=== PATIENT | male | born 1995 | race Native Hawaiian/Other Pacific Islander ===

== ENCOUNTER 2021-09-05 20:05 | Emergency (ER) | payer MEDICAID, OTHER ==
[~2021-09-05] VITALS: Ht 182.9 cm; Wt 124.7 kg
[2021-09-05] MEDS ORDERED: KETOROLAC TROMETH 60MG/2ML VIAL IM ONE (21:45)
[2021-09-05] MEDS ORDERED: NAP500T PO (21:46)
[2021-09-05 21:48] VITALS: BP 140/77
== END 2021-09-05 22:43 | disposition home or self-care (01) ==
LOC: ER 20:05
DX: M25.512 Pain in left shoulder (principal); M79.18 Myalgia, other site; X58.XXXA Exposure to other specified factors, initial encounter; Y93.89 Activity, other specified; Y92.89 Other specified places as the place of occurrence of the external cause; Y99.8 Other external cause status
CPT/HCPCS: 96372; 99283; J1885

== ENCOUNTER 2025-01-07 10:30 | Inpatient (IN) | payer MEDICAID ==
[~2025-01-07] VITALS: Ht 182.9 cm; Wt 159.0 kg
[~2025-01-07 10:30] MED LIST: ALBU108A5 INH; COLC1CAP PO; NAP500T PO; POTA-228 PO
--- NOTE | 2025-01-07 10:43 | ECG ---
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
--- NOTE | 2025-01-07 11:03 | ED.PDOC ---
HPI Comments HPI: Poor Historian. 29-year-old male who presents to the ED for c/c of chest pain and shortness of breath for the past 3 weeks Patient states that he has a history of heart failure from prior drug and ETOH use and states he has been having associated bilateral lower extremity swelling Patient states he was hospitalized in October 2024 and states since he has been coming to the hospital every few months for similar complaints Patient states he was placed on 2 L supplemental oxygen at home but states despite being on oxygen he has continued to have persistence of his symptoms Patient states he was also noted increased shortness of breath on attempting to lay down and came to the ED for evaluation Patient in the ED states 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 EARS: Denies acute: tinnitus, hearing loss, ear discharge, ear pain, THROAT: Denies acute: sore throat, swelling, difficulty swallowing , pain with swallowing, change in voice. NECK: Denies acute: neck pain, neck swelling, stiff neck. HEART: Denies acute : palpitations, LUNGS: Denies acute: wheezing, cough, hemoptysis ABDOMEN: Denies acute: abdominal pain, Nausea, Vomiting, diarrhea, melena , hematemesis, hematochezia SKIN: Denies acute: rash, redness, lesions, itchiness. EXTREMITIES: Denies acute: calf pain, numbness, tingling, weakness, denies pain in extremity. Denies acute: Low back pain. Neuro: Denies acute: focal neurological deficit, motor or sensory focal neurological deficit, tremors, seizure like activity, confusion, dizziness, change in mental status, loss of bowel or bladder function, cauda equina like symptoms. : Denies acute: dysuria, hematuria, flank pain, increase in urinary frequency. PSYCH: Denies acute: hallucination, suicidal ideation, homicidal ideation. PHYSICAL EXAM: General: ----[id number]---acute distress, awake and alert. Head: normocephalic, atraumatic. Neck: supple, trachea is midline, no swelling. Throat: Normal phonation. Eyes:, no erythema, no purulent discharge, no proptosis, no icterus. Heart: regular rate, regular rhythm, no significant murmur appreciated. Lungs: no apparent respiratory distress, Able to speak in full sentences. No wheezing, no rhonchi, no crackles. No stridors Clear to auscultation bilaterally. Abdomen: non tender to palpation, non distended, soft, no guarding, no rebound, + bowel sounds. Obese Neuro: Awake, Alert, oriented to name, self, situation, follows commands GCS=15. Speech is normal. Skin: no petechia, no purpura, no cyanosis, non-pale, not jaundice. Lower extremities: --1/4 bilateral - Pitting edema no deformity, no focal swelling, no calf TTP. Makes eye contact. moves all four extremities. Face: no apparent facial droop. Ambulating in the ED independently. ED COURSE: DISCLAIMER: This medical document was created using an electronic medical record system with voice recognition software and computerized dictation system. Although this document has been carefully reviewed, there might still be some phonetic and typographical errors. Occasional wrong-word or "sound-alike" substitutions may have occurred due to the inherent limitations of voice recognition software. These areas are purely typographical due to imperfections of the software programs and do not reflect any compromise in the patient's medical care. Please read the chart carefully and recognize, using context, where these substitutions have occurred. Chief Complaint: Chest Pain Time Seen by MD: 10:44 Reviewed Notes: Allergies Allergies: Coded Allergies: NO KNOWN ALLERGIES (Unverified , 01/07/25) Home Meds Active Scripts Naproxen (NAPROSYN TABLET) 500 Mg Tb, 1 TAB PO BID PRN, #30 TAB 1 Refill Prov:PAVEL XIE Lona QUINONES 09/05/21 Reported Medications Sacubitril-Valsartan (Entresto 24-26 mg) 1 Tab Tab, 1 TAB PO BID 01/07/25 Carvedilol (Carvedilol) 3.125 Mg Tab, 1 TAB PO BID 01/07/25 Aspirin (Aspirin Low Dose) 81 Mg Tab, 1 TAB PO DAILY 01/07/25 Fluticasone Furoate-Vilanterol (Fluticasone Furoate/Vilan 100-25 Mcg/Act) 1 Inh Inh, 1 PUFF PO DAILY 01/07/25 Albuterol Sulfate (Albuterol Sulfate Hfa) 108 Mcg/Act Aer, INH 01/07/25 Colchicine (Colchicine) 0.6 Mg Cap 01/07/25 Furosemide (Furosemide) 80 Mg Tab, 1 TAB PO BID 01/07/25 Allopurinol (Allopurinol) 100 Mg Tab, 1 TAB PO DAILY 01/07/25 Furosemide (Furosemide) 40 Mg Tab, 1 TAB PO DAILY 01/07/25 Empagliflozin (Jardiance) 25 Mg Tab, 1 TAB PO DAILY 01/07/25 Information Source: Patient Mode of Arrival: Ambulatory Past Medical History PAST MEDICAL HISTORY: Denies EKG EKG : Pulse Rate (adult): 102 [place]: Normal Cardiac Rhythm: ST Block: None Hypertrophy: None ST: Normal Was a procedure done? Was a procedure done?: No CP Differential Dx Differential Diagnosis: N/A Differential Diagnosis: Other (DDx include ACS, unstable angina, anxiety, PE, pneumothroax, neoplasm, cardiac ischemia, COPD, asthma, CHF, pleural effusion, tobacco abuse, pneumonia, hypoxia, hypercapnia, anemia., infection/sepsis., pulmonary edema. Asthma, Cardiac tamponade, infection.) X-Ray, Labs, Meds, VS Vital Signs Date Time Temp Pulse Resp B/P (MAP) Pulse Ox O2 Delivery O2 Flow Rate FiO2 01/07/25 13:33 93 01/07/25 13:13 136/72 01/07/25 12:50 102 01/07/25 12:43 49 18 100 Room Air 01/07/25 12:43 49 18 93/58 (70) 99 01/07/25 11:35 98 01/07/25 10:34 102 01/07/25 10:32 97.4 102 20 123/63 97 97.4 Lab Test 01/07/25 14:00 01/07/25 11:39 01/07/25 10:41 Range/Units Troponin I High Sensitivity 41 44 45 </=54 ng/L White Blood Count 7.1 4.4-10.8 10^3/uL Red Blood Count 5.37 4.5-5.90 10^6/uL Hemoglobin 17.4 13.5-17.5 g/dL Hematocrit 51.0 41.0-53.0 % Mean Corpuscular Volume 94.9 80.0-100.0 fL Mean Corpuscular Hemoglobin 32.4 H 28.0-32.0 pg Mean Corpuscular Hemoglobin Concent 34.1 32.0-36.0 g/dL Red Cell Distribution Width 15.4 H 11.8-14.3 % Platelet Count 178 140-450 10^3/uL Mean Platelet Volume 7.7 6.9-10.8 fL Neutrophils (%) (Auto) 54.8 37.0-80.0 % Lymphocytes (%) (Auto) 30.2 10.0-50.0 % Monocytes (%) (Auto) 8.4 0.0-12.0 % Eosinophils (%) (Auto) 5.4 0.0-7.0 % Basophils (%) (Auto) 1.2 0.0-2.0 % Neutrophils # (Auto) 3.9 1.6-8.6 10 ^3/uL Lymphocytes # (Auto) 2.2 0.4-5.4 10 ^3/uL Monocytes # (Auto) 0.6 0-1.3 10 ^3/uL Eosinophils # (Auto) 0.4 0-0.8 10 ^3/uL Basophils # (Auto) 0.1 0-0.2 10 ^3/uL Nucleated Red Blood Cells 0.2 % Sodium Level 136 136-145 mmol/L Potassium Level 4.2 3.5-5.1 mmol/L Chloride Level 101 98-107 mmol/L Carbon Dioxide Level 22 20-31 mmol/L Anion Gap 13 5-15 Blood Urea Nitrogen 17 9-23 mg/dL Creatinine 1.39 H 0.700-1.30 mg/dL Glomerular Filtration Rate Calc 70 >90 mL/min BUN/Creatinine Ratio 12.2 10.0-20.0 Serum Glucose 86 74-106 mg/dL Hemoglobin A1c 6.0 H <5.7 % A1C Calcium Level 9.1 8.7-10.4 mg/dL Magnesium Level 2.0 1.6-2.6 mg/dL Total Bilirubin 2.4 H 0.2-1.0 mg/dL Aspartate Amino Transferase (AST) 60 H 13-40 U/L Alanine Aminotransferase (ALT) 35 7-40 U/L Alkaline Phosphatase 110 46-116 U/L B-Type Natriuretic Peptide 2060.58 0-100 pg/mL Total Protein 7.4 5.7-8.2 g/dL Albumin 4.1 3.2-4.8 g/dL Current Medications Medications (Trade) Dose Ordered Sig/Evens Route Start Time Stop Time Status Last Admin Furosemide (Lasix Injection) 80 mg ONCE ONCE IV 01/07/25 11:00 01/07/25 11:01 DC 01/07/25 13:13 [place] [address] Ph: [phone] DIAGNOSTIC IMAGING Diagnostic Imaging Report : [id number] Signed PATIENT: MAURO WOLF ACCT: [id number] UNIT: [id number] : 1995 LOC: ER ROOM / BED: / AGE / SEX: 29 / M ADM STATUS: REG ER SERVICE 1050 ORDERING PHYSICIAN: ARSALAN DE OLIVEIRA DO PROCEDURE(s): CXRP - CHEST PORTABLE REASON: cp sob ORDER NUMBER(s): [id number], ACCESSION NUMBER(s): [id number] CHEST RADIOGRAPH Indication: cp sob Technique: Single frontal view of the chest was obtained COMPARISON: XR CHEST 1 VIEW on DOS: 11/04/24, CT ANGIO CHEST - PULMONARY on DOS: 08/26/24, XR CHEST 2 VIEWS on DOS: 08/26/24, XR CHEST 1 VIEW on DOS: 12/18/23, XR CHEST 1 VIEW on DOS: 08/03/20 FINDINGS: Lines and Tubes: Left chest AICD. Lungs: Congestion Pleura: No effusion. No pneumothorax. Cardiomediastinal contours: Cardiomegaly Bones: Unremarkable IMPRESSION: Increased interstital prominence. This may represent pulmonary vascular congestion and/or viral pneumonia. Clinical correlation advised. ATED BY: MYKE ESCALERA MD DICTATED DATE/TIME: 01/07/25 112 SIGNED BY: MYKE ESCALERA MD SIGNED DATE/TIME: 01/07/25 112 CC: Time of 1ST Reevaluation: 20:22 Reevaluation 1ST: Improved Patient Education/Counseling: Diagnosis, Treatment Family Education/Counseling: No Family Present Comments MDM: patient presented with the above HPI.-dyspnea/cardiac-----workup was initiated. patient was found with the above mentioned diagnosis. the following medications were ordered: please refer to order lists of meds and tests obtained by myself Dr. De Oliveira. Patient ED course and VS have been stabilized. Patient has been reassessed in the ED and remained in a stable condition. Pertinent incidental findings were discussed with the patient and/or family. Patient/family voices understanding and is agreeable with plan. Patient has been observed in the ED adequate length of time to insure improvement/stability. Escalation of care considered: Consideration of escalation to observation or admission Patient was ADMITTED to the medicine team for further evaluation and treatment of their presentation. All the reports of any imaging studies that were ordered by myself were reviewed by myself. SEPSIS Sepsis Screen Date sepsis recognized/suspect: Jan 07, 2025 Time Sepsis recognized/suspect: 1036 Recent Procedure: No On Antibiotic Therapy: No Respiratory Rate >20: No Heart Rate >90: Yes Temp<36 C (96.8 F) or >38.3 C: No SBP <90 or MAP <65 mmHG: No New Acute Mental Status Change: No Is the patient on CPAP, BIPAP,: No Physician Orders Electrocardigram (01/07/25 13:41) Wallpaper Installer (01/07/25 ) Chest Portable (01/07/25 10:50) Vital Signs Date Time Temp Pulse Resp B/P (MAP) Pulse Ox O2 Delivery O2 Flow Rate FiO2 01/07/25 13:33 93 01/07/25 13:13 136/72 01/07/25 12:50 102 01/07/25 12:43 49 18 100 Room Air 01/07/25 12:43 49 18 93/58 (70) 99 01/07/25 11:35 98 01/07/25 10:34 102 01/07/25 10:32 97.4 102 20 123/63 97 97.4 Laboratory Tests Test 01/07/25 10:41 White Blood Count 7.1 10^3/uL (4.4-10.8) Medications Medications Dose Ordered Sig/Evens Route Start Time Stop Time Status Last Admin Dose Admin Furosemide 80 mg ONCE ONCE IV 01/07/25 11:00 01/07/25 11:01 DC 01/07/25 13:13 Departure 1 Departure Time of Disposition: 11:09 Impression: Primary Impression: CHF exacerbation Disposition: ADMITTED INPATIENT Admit to: Tele Condition: Guarded Discharged With: Self Critical Care Note Critical Care Time?: Yes (35 min-critical care time only) Heart Score Heart Score: Heart Score Response (Comments) Value History Moderate Suspicious 1 EKG Normal 0 Age <45 0 Risk Factors 1 or 2 risk factors 1 Troponin Normal limit 0 Total 2 I personally scribed for ARSALAN DE OLIVEIRA DO ([email or web address]) on 01/07/25 at 11:03. Electronically submitted by Haleigh Moon ([email or web address]). I personally scribed for ARSALAN DE OLIVEIRA DO ([email or web address]) on 01/07/25 at 12:50. Electronically submitted by Haleigh Moon ([email or web address]). ARSALAN DE OLIVEIRA DO Jan 07, 2025 11:03
[2025-01-07 11:16] LABS: Hematocrit 51.0 % (41.0-53.0); Hemoglobin 17.4 g/dL (13.5-17.5); Mean Corpuscular Hemoglobin 32.4 pg (28.0-32.0); Mean Corpuscular Volume 94.9 fL (80.0-100.0); Nucleated Red Blood Cells % 0.2 %
[2025-01-07 11:31] LABS: Alanine Aminotransferase 35 U/L (7-40); Albumin 4.1 g/dL (3.2-4.8); Alkaline Phosphatase 110 U/L (46-116); Anion Gap 13 (5-15); BUN/Creatinine Ratio 12.2 (10.0-20.0); Blood Urea Nitrogen 17 mg/dL (9-23); Calcium 9.1 mg/dL (8.7-10.4); Carbon Dioxide 22 mmol/L (20-31); Chloride 101 mmol/L (98-107); Glucose 86 mg/dL (74-106); Magnesium 2.0 mg/dL (1.6-2.6); Potassium 4.2 mmol/L (3.5-5.1); Total Protein 7.4 g/dL (5.7-8.2)
[2025-01-07 11:32] LABS: Bilirubin, Total 2.4 mg/dL (0.2-1.0); Sodium 136 mmol/L (136-145)
--- NOTE | 2025-01-07 11:32 | DVH ---
CHEST RADIOGRAPH Indication: cp sob Technique: Single frontal view of the chest was obtained COMPARISON: XR CHEST 1 VIEW on DOS: 11/04/24, CT ANGIO CHEST - PULMONARY on DOS: 08/26/24, XR CHEST 2 V IEWS on DOS: 08/26/24, XR CHEST 1 VIEW on DOS: 12/18/23, XR CHEST 1 VIEW on DOS: 08/03/20 FINDINGS: Lines and Tubes: Left chest AICD. Lungs: Congestion Pleura: No effusion. No pneumothorax. Cardiomediastinal contours: Cardiomegaly Bones: Unremarkable IMPRESSION: Increased interstital prominence. This may represent pulmonary vascular congestion and/or viral pneum onia. Clinical correlation advised.
[2025-01-07] MEDS: FUROSEMIDE 100 MG/10ML VIAL IV ONE (13:13)
[2025-01-07] MEDS ORDERED: NITROGLYCERIN 0.4 MG SL TAB SL PRN (14:30)
[2025-01-07] MEDS ORDERED: ACETAMINOPHEN 325 MG TAB PO PRN (14:30)
[2025-01-07] MEDS ORDERED: ONDANSETRON HCL 4 MG/2 ML VIAL IV PRN (14:30)
[2025-01-07] MEDS ORDERED: MORPHINE SULFATE 4 MG/ML SYR/VIAL IV PRN (14:45)
--- NOTE | 2025-01-07 15:07 | DVHHPRES ---
History of Present Illness Resident Creating Document: LUIS EDUARDO VALENTINO RESIDENT Review of Systems Allergies: Coded Allergies: NO KNOWN ALLERGIES (Unverified , 01/07/25) Medications Current Medications Medications Dose Ordered Sig/Evens Route Start Time Stop Time Status Last Admin Dose Admin Ondansetron HCl 4 mg Q4HP PRN IV 01/07/25 14:30 Enoxaparin Sodium 40 mg DAILY SC 01/08/25 10:00 Acetaminophen 650 mg Q6HP PRN PO 01/07/25 14:30 Nitroglycerin 0.4 mg Q5MINP PRN SL 01/07/25 14:30 Morphine Sulfate 2 mg Q30M PRN IV 01/07/25 14:45 Furosemide 40 mg BIDD IV 01/07/25 18:00 UNV Empaglifozin 25 mg DAILY PO 01/08/25 10:00 UNV Allopurinol 100 mg DAILY PO 01/08/25 10:00 UNV Potassium Chloride 10 meq DAILY PO 01/08/25 10:00 UNV Carvedilol 3.125 mg Q12HR PO 01/07/25 22:00 UNV Sacubitril/ Valsartan 2 tab BID PO 01/07/25 22:00 UNV Exam Vital Signs Vital Signs Date Time Temp Pulse Resp B/P (MAP) Pulse Ox O2 Delivery O2 Flow Rate FiO2 01/07/25 13:33 93 01/07/25 13:13 136/72 01/07/25 12:43 18 100 Room Air 01/07/25 10:32 97.4 97.4 Labs/Xrays Labs Test 01/07/25 14:00 01/07/25 10:41 Range/Units Troponin I High Sensitivity 41 </=54 ng/L White Blood Count 7.1 4.4-10.8 10^3/uL Red Blood Count 5.37 4.5-5.90 10^6/uL Hemoglobin 17.4 13.5-17.5 g/dL Hematocrit 51.0 41.0-53.0 % Mean Corpuscular Volume 94.9 80.0-100.0 fL Mean Corpuscular Hemoglobin 32.4 H 28.0-32.0 pg Mean Corpuscular Hemoglobin Concent 34.1 32.0-36.0 g/dL Red Cell Distribution Width 15.4 H 11.8-14.3 % Platelet Count 178 140-450 10^3/uL Mean Platelet Volume 7.7 6.9-10.8 fL Neutrophils (%) (Auto) 54.8 37.0-80.0 % Lymphocytes (%) (Auto) 30.2 10.0-50.0 % Monocytes (%) (Auto) 8.4 0.0-12.0 % Eosinophils (%) (Auto) 5.4 0.0-7.0 % Basophils (%) (Auto) 1.2 0.0-2.0 % Neutrophils # (Auto) 3.9 1.6-8.6 10 ^3/uL Lymphocytes # (Auto) 2.2 0.4-5.4 10 ^3/uL Monocytes # (Auto) 0.6 0-1.3 10 ^3/uL Eosinophils # (Auto) 0.4 0-0.8 10 ^3/uL Basophils # (Auto) 0.1 0-0.2 10 ^3/uL Nucleated Red Blood Cells 0.2 % Sodium Level 136 136-145 mmol/L Potassium Level 4.2 3.5-5.1 mmol/L Chloride Level 101 98-107 mmol/L Carbon Dioxide Level 22 20-31 mmol/L Anion Gap 13 5-15 Blood Urea Nitrogen 17 9-23 mg/dL Creatinine 1.39 H 0.700-1.30 mg/dL Glomerular Filtration Rate Calc 70 >90 mL/min BUN/Creatinine Ratio 12.2 10.0-20.0 Serum Glucose 86 74-106 mg/dL Calcium Level 9.1 8.7-10.4 mg/dL Magnesium Level 2.0 1.6-2.6 mg/dL Total Bilirubin 2.4 H 0.2-1.0 mg/dL Aspartate Amino Transferase (AST) 60 H 13-40 U/L Alanine Aminotransferase (ALT) 35 7-40 U/L Alkaline Phosphatase 110 46-116 U/L B-Type Natriuretic Peptide 2060.58 0-100 pg/mL Total Protein 7.4 5.7-8.2 g/dL Albumin 4.1 3.2-4.8 g/dL SEPSIS Sepsis Screen Date sepsis recognized/suspect: Jan 07, 2025 Time Sepsis recognized/suspect: 6 Recent Procedure: No On Antibiotic Therapy: No Respiratory Rate >20: No Heart Rate >90: Yes Temp<36 C (96.8 F) or >38.3 C: No SBP <90 or MAP <65 mmHG: No New Acute Mental Status Change: No Is the patient on CPAP, BIPAP,: No Physician Orders Electrocardigram (01/07/25 11:41) Electrocardigram (01/07/25 13:41) Waste Collection Driver (01/07/25 ) Chest Portable (01/07/25 10:50) Admit (01/07/25 14:22) Code Status (01/07/25 14:22) Oxygen Per Hour (01/07/25 14:22) Ondansetron Hcl (Zofran) (01/07/25 14:30) Enoxaparin Sodium (Lovenox) (01/08/25 10:00) Complete Blood Count (01/08/25 04:00) Comprehensive Metabolic Panel (01/08/25 04:00) Cardiac Diet-2gna,Lofat,Lochol (01/07/25 Dinner) Echo 2d Mode Cardiac Dop (01/07/25 14:22) Condition: Unstable (01/07/25 14:22) Acetaminophen Tablet (Tylenol Tablet) (01/07/25 14:30) Nitroglycerin Sublingual (Ntrostat Subli (01/07/25 14:30) Oxygen By Nasal Cannula (01/07/25 14:22) Stat Ekg For Chest Pain (01/07/25 14:22) Notify Md Of Changes From Base (01/07/25 14:22) Pheresis Nurse For 24 Hours (01/07/25 14:22) Emergency Dysrhythmia Protocol (01/07/25 14:22) Rhythm Strips Once Every Shift (01/07/25 14:22) Morphine Sulfate Injection (01/07/25 14:45) Furosemide Injection (Lasix Injection) (01/07/25 18:00) Empagliflozin (Jardiance) (01/08/25 10:00) Aspirin Tablet (01/07/25 15:00) Colchicine (Colcrys) (01/07/25 22:00) Allopurinol Tablet (Zyloprim Tablet) (01/08/25 10:00) Potassium Er Tablet (Klor-Con Tablet) (01/08/25 10:00) Carvedilol Tablet (Coreg Tablet) (01/07/25 22:00) Sacubitril-Valsartan (Entresto 24-26 Mg (01/07/25 22:00) Strict I & O QSHIFT (01/07/25 15:00) Obtain Daily Weight 22 (01/07/25 15:00) Maintain Fluid Restrictions QSHIFT (01/07/25 15:00) Vital Signs Date Time Temp Pulse Resp B/P (MAP) Pulse Ox O2 Delivery O2 Flow Rate FiO2 01/07/25 13:33 93 01/07/25 13:13 136/72 01/07/25 12:50 102 01/07/25 12:43 49 18 100 Room Air 01/07/25 12:43 49 18 93/58 (70) 99 01/07/25 11:35 98 01/07/25 10:34 102 01/07/25 10:32 97.4 102 20 123/63 97 97.4 Laboratory Tests Test 01/07/25 10:41 White Blood Count 7.1 10^3/uL (4.4-10.8) Medications Medications Dose Ordered Sig/Evens Route Start Time Stop Time Status Last Admin Dose Admin Furosemide 80 mg ONCE ONCE IV 01/07/25 11:00 01/07/25 11:01 DC 01/07/25 13:13 80 MG Assessment/Plan My Orders Orders - LUIS EDUARDO VALENTINO RESIDENT Procedure Category Date Status Time Admit ADMIT 01/07/25 Transmitted 14:22 Code Status CODE 01/07/25 Transmitted 14:22 Oxygen Per Hour RT 01/07/25 Transmitted 14:22 Ondansetron Hcl PHA 01/07/25 In Process (Zofran) 14:30 Enoxaparin Sodium PHA 01/08/25 In Process (Lovenox) 10:00 Complete Blood Count LAB 01/08/25 Verified 04:00 Comprehensive LAB 01/08/25 Verified Metabolic Panel 04:00 Cardiac DIET 01/07/25 Transmitted Diet-2gna,Lofat,Lochol Dinner Echo 2d Mode Cardiac US 01/07/25 Logged DOP 14:22 Condition: Unstable LINDA 01/07/25 In Process 14:22 Acetaminophen Tablet PHA 01/07/25 In Process (Tylenol Tablet) 14:30 Nitroglycerin PHA 01/07/25 In Process Sublingual (Ntrostat 14:30 Oxygen By Nasal RT 01/07/25 Transmitted Cannula 14:22 Stat Ekg For Chest [facility] 01/07/25 In Process Pain 14:22 Notify Of Changes [facility] 01/07/25 In Process From Base 14:22 Pheresis Nurse For [facility] 01/07/25 In Process 24 Hours 14:22 Emergency Dysrhythmia [facility] 01/07/25 In Process Protocol 14:22 Rhythm Strips Once [facility] 01/07/25 In Process Every Shift 14:22 Morphine Sulfate [facility] 01/07/25 In Process Injection 14:45 Furosemide Injection [facility] 01/07/25 Logged (Lasix Injection) 18:00 Empagliflozin [facility] 01/08/25 Logged (Jardiance) 10:00 Aspirin Tablet [facility] 01/07/25 Logged 15:00 Colchicine (Colcrys) [facility] 01/07/25 Logged 22:00 Allopurinol Tablet [facility] 01/08/25 Logged (Zyloprim Tablet) 10:00 Potassium Er Tablet [facility] 01/08/25 Logged (Klor-Con Tablet) 10:00 Carvedilol Tablet [facility] 01/07/25 Logged (Coreg Tablet) 22:00 Sacubitril-Valsartan [facility] 01/07/25 Logged (Entresto 24-26 Mg 22:00 Strict I & O [facility] 01/07/25 In Process 15:00 Obtain Daily Weight [facility] 01/07/25 In Process 15:00 Maintain Fluid [facility] 01/07/25 In Process Restrictions 15:00 Date of Service: Jan 07, 2025 Billing Provider: GIRISH FELTON MD Common Visit Codes: [id number] INP/OBS CARE (HIGH) LUIS EDUARDO VALENTINO RESIDENT Jan 07, 2025 15:07
--- NOTE | 2025-01-07 16:33 | DVHHPRES ---
History of Present Illness Resident Creating Document: NORMA MURGUIA RESIDENT History of Present Illness 29-year-old male with CHF (EF 15% on 04/03), AICD 2020, recurrent admissions (13 since 2020), prior alcohol and drug use (abstinent for about 1 year), on home O2- 2 L nasal cannula, presents with intermittent chest pain which is pressure- like, nonradiating, worse with hard cough and at rest as well and progressive shortness of breath with orthopnea (multiple pillows, poor sleep) and bilateral leg edema. Patient reports persistent cough with white sputum, no fever or hemoptysis. He states daily adherence to GDMT (carvedilol, Entresto, furosemide 80 mg b.i.d., empagliflozin, aspirin, KCl ER, colchicine 0.6 mg, allopurinol). Last AICD shock 1 year ago, last interrogation around 1 year ago. Most recent hospitalization October 2024. Patient's heart rate is 102, BP 130/72, SpO2 99% RA, afebrile. T. bili 2.4, AST 60, ALT 35, BNP 206 0, troponins 45> 44. EKG shows sinus tachycardia, prolonged UT, LAE, prior lateral infarct pattern. Past medical history: Heart failure from prior drug use Past surgical history: AICD placed 2020 Family history: Reviewed and noncontributory the management of this case Social history: Patient denies smoking, drug abuse but drinks alcohol Allergies: None Home medications: Carvedilol, Entresto, furosemide, potassium supplement, colchicine, allopurinol, Jardiance, aspirin Review of Systems Constitutional: No: Fever, Chills, Sweats, Weakness, Malaise, Other Eyes: No: Pain, Vision change, Conjunctivae inflammation, Eyelid inflammation, Other, Redness ENT: No: Ear pain, Ear discharge, Nose pain, Nose discharge, Nose congestion, Mouth pain, Mouth swelling, Throat pain, Throat swelling, Other Respiratory: Shortness of breath; No: Cough, Dry, SOB with excertion, Wheezing, Hemoptysis, Pleuritic Pain, Sputum, Wheezing, Other Cardiovascular: Edema; No: Chest Pain, Palpitations, Orthopnea, Paroxysmal Noc. Dyspnea, Lt Headedness, Other Gastrointestinal: No: Nausea, Vomiting, Abdominal Pain, Diarrhea, Constipation, Melena, Hematochezia, Other Genitourinary: No Dysuria, No Frequency, No Incontinence, No Hematuria, No Retention, No Other Musculoskeletal: No: other, neck pain, shoulder pain, arm pain, back pain, hand pain, leg pain, foot pain Skin: No: Rash, Lesions, Jaundice, Bruising, Other Neurological: No: Weakness, Numbness, Incoordination, Change in speech, Confusion, Seizures, Other Allergies: Coded Allergies: NO KNOWN ALLERGIES (Unverified , 01/07/25) Medications Current Medications Medications Dose Ordered Sig/Evens Route Start Time Stop Time Status Last Admin Dose Admin Ondansetron HCl 4 mg Q4HP PRN IV 01/07/25 14:30 Enoxaparin Sodium 40 mg DAILY SC 01/08/25 10:00 Acetaminophen 650 mg Q6HP PRN PO 01/07/25 14:30 Nitroglycerin 0.4 mg Q5MINP PRN SL 01/07/25 14:30 Morphine Sulfate 2 mg Q30M PRN IV 01/07/25 14:45 Furosemide 40 mg BIDD IV 01/07/25 18:00 Empaglifozin 25 mg DAILY PO 01/08/25 10:00 Colchicine 0.6 mg BID PO 01/07/25 22:00 Allopurinol 100 mg DAILY PO 01/08/25 10:00 Potassium Chloride 10 meq DAILY PO 01/08/25 10:00 Carvedilol 3.125 mg Q12HR PO 01/07/25 22:00 Sacubitril/ Valsartan 2 tab BID PO 01/07/25 22:00 Exam Vital Signs Vital Signs Date Time Temp Pulse Resp B/P (MAP) Pulse Ox O2 Delivery O2 Flow Rate FiO2 01/07/25 13:33 93 01/07/25 13:13 136/72 01/07/25 12:43 18 100 Room Air 01/07/25 10:32 97.4 97.4 Exam Pt is lying on bed General Appearance: Alert, Oriented X3, Cooperative, Not in acute distress HEENT: Atraumatic, Mucous membranes moist/pink Respiratory: Clear to auscultation, Normal air movement, No added sounds Cardiovascular: Regular rate, Normal S1, Normal S2, presence of bilateral crackles Abdominal: Active bowel sounds, Soft, no distention, no tenderness Extremities: No edema, Normal pulses, +2 pitting edema in bilateral legs up to knee Skin: No Significant rash, except past surgical scars Neuro: Normal speech, sensorimotor deficits none Psych/Mental Status: Mental status NL, Mood NL Nurse was there as automotive manufacturer during examination Labs/Xrays Labs Test 01/07/25 14:00 01/07/25 10:41 Range/Units Troponin I High Sensitivity 41 </=54 ng/L White Blood Count 7.1 4.4-10.8 10^3/uL Red Blood Count 5.37 4.5-5.90 10^6/uL Hemoglobin 17.4 13.5-17.5 g/dL Hematocrit 51.0 41.0-53.0 % Mean Corpuscular Volume 94.9 80.0-100.0 fL Mean Corpuscular Hemoglobin 32.4 H 28.0-32.0 pg Mean Corpuscular Hemoglobin Concent 34.1 32.0-36.0 g/dL Red Cell Distribution Width 15.4 H 11.8-14.3 % Platelet Count 178 140-450 10^3/uL Mean Platelet Volume 7.7 6.9-10.8 fL Neutrophils (%) (Auto) 54.8 37.0-80.0 % Lymphocytes (%) (Auto) 30.2 10.0-50.0 % Monocytes (%) (Auto) 8.4 0.0-12.0 % Eosinophils (%) (Auto) 5.4 0.0-7.0 % Basophils (%) (Auto) 1.2 0.0-2.0 % Neutrophils # (Auto) 3.9 1.6-8.6 10 ^3/uL Lymphocytes # (Auto) 2.2 0.4-5.4 10 ^3/uL Monocytes # (Auto) 0.6 0-1.3 10 ^3/uL Eosinophils # (Auto) 0.4 0-0.8 10 ^3/uL Basophils # (Auto) 0.1 0-0.2 10 ^3/uL Nucleated Red Blood Cells 0.2 % Sodium Level 136 136-145 mmol/L Potassium Level 4.2 3.5-5.1 mmol/L Chloride Level 101 98-107 mmol/L Carbon Dioxide Level 22 20-31 mmol/L Anion Gap 13 5-15 Blood Urea Nitrogen 17 9-23 mg/dL Creatinine 1.39 H 0.700-1.30 mg/dL Glomerular Filtration Rate Calc 70 >90 mL/min BUN/Creatinine Ratio 12.2 10.0-20.0 Serum Glucose 86 74-106 mg/dL Calcium Level 9.1 8.7-10.4 mg/dL Magnesium Level 2.0 1.6-2.6 mg/dL Total Bilirubin 2.4 H 0.2-1.0 mg/dL Aspartate Amino Transferase (AST) 60 H 13-40 U/L Alanine Aminotransferase (ALT) 35 7-40 U/L Alkaline Phosphatase 110 46-116 U/L B-Type Natriuretic Peptide 2060.58 0-100 pg/mL Total Protein 7.4 5.7-8.2 g/dL Albumin 4.1 3.2-4.8 g/dL SEPSIS Sepsis Screen Date sepsis recognized/suspect: Jan 07, 2025 Time Sepsis recognized/suspect: 1035 Recent Procedure: No On Antibiotic Therapy: No Respiratory Rate >20: No Heart Rate >90: Yes Temp<36 C (96.8 F) or >38.3 C: No SBP <90 or MAP <65 mmHG: No New Acute Mental Status Change: No Is the patient on CPAP, BIPAP,: No Physician Orders Electrocardigram (01/07/25 11:41) Electrocardigram (01/07/25 13:41) Business Technology Teacher (01/07/25 ) Chest Portable (01/07/25 10:50) Admit (01/07/25 14:22) Code Status (01/07/25 14:22) Oxygen Per Hour (01/07/25 14:22) Ondansetron Hcl (Zofran) (01/07/25 14:30) Enoxaparin Sodium (Lovenox) (01/08/25 10:00) Complete Blood Count (01/08/25 04:00) Comprehensive Metabolic Panel (01/08/25 04:00) Cardiac Diet-2gna,Lofat,Lochol (01/07/25 Dinner) Echo 2d Mode Cardiac Dop (01/07/25 14:22) Condition: Unstable (01/07/25 14:22) Acetaminophen Tablet (Tylenol Tablet) (01/07/25 14:30) Nitroglycerin Sublingual (Ntrostat Subli (01/07/25 14:30) Oxygen By Nasal Cannula (01/07/25 14:22) Stat Ekg For Chest Pain (01/07/25 14:22) Notify Md Of Changes From Base (01/07/25 14:22) Diversified Crops Supervisor For 24 Hours (01/07/25 14:22) Emergency Dysrhythmia Protocol (01/07/25 14:22) Rhythm Strips Once Every Shift (01/07/25 14:22) Morphine Sulfate Injection (01/07/25 14:45) Furosemide Injection (Lasix Injection) (01/07/25 18:00) Empagliflozin (Jardiance) (01/08/25 10:00) Colchicine (Colcrys) (01/07/25 22:00) Allopurinol Tablet (Zyloprim Tablet) (01/08/25 10:00) Potassium Er Tablet (Klor-Con Tablet) (01/08/25 10:00) Carvedilol Tablet (Coreg Tablet) (01/07/25 22:00) Sacubitril-Valsartan (Entresto 24-26 Mg (01/07/25 22:00) Strict I & O QSHIFT (01/07/25 15:00) Obtain Daily Weight 22 (01/07/25 15:00) Maintain Fluid Restrictions QSHIFT (01/07/25 15:00) Vital Signs Date Time Temp Pulse Resp B/P (MAP) Pulse Ox O2 Delivery O2 Flow Rate FiO2 01/07/25 13:33 93 01/07/25 13:13 136/72 01/07/25 12:50 102 01/07/25 12:43 49 18 100 Room Air 01/07/25 12:43 49 18 93/58 (70) 99 01/07/25 11:35 98 01/07/25 10:34 102 01/07/25 10:32 97.4 102 20 123/63 97 97.4 Laboratory Tests Test 01/07/25 10:41 White Blood Count 7.1 10^3/uL (4.4-10.8) Medications Medications Dose Ordered Sig/Evens Route Start Time Stop Time Status Last Admin Dose Admin Aspirin 81 mg ONCE ONCE PO 01/07/25 15:00 01/07/25 15:14 DC 01/07/25 16:02 81 MG Furosemide 80 mg ONCE ONCE IV 01/07/25 11:00 01/07/25 11:01 DC 01/07/25 13:13 80 MG Assessment/Plan Assessment/Plan #Acute exacerbation of heart failure, HFrEF 15% -EKG -telemetry -echo, pending -furosemide 40 mg IV b.i.d. -strict input output monitoring -fluid restriction -Obtain daily weight -Entresto 2 tabs b.i.d. scheduled -Carvedilol 3.125 mg per orally Q 12 scheduled - Jardiance 25 mg p.o. daily scheduled -Potassium ER tablet 10 mEq per oral daily scheduled -aspirin 81 mg per orally -morphine sulfate injection 2 mg IV Q 30 PRN -nitroglycerin sublingual 0.4 mg Q 5 minute PRN - acetaminophen 650 mg p.o. q.6 PRN - Zofran 4 mg IV q.4 PRN -CXR: Increased interstital prominence. This may represent pulmonary vascular congestion and/or viral pneumonia. Clinical correlation advised. -flu, COVID test, pending #gout, no flare -allopurinol 100 mg p.o. daily scheduled -Colchicine 0.6 mg p.o. b.i.d. scheduled #morbid obesity -Patient counseled regarding dietary modification, lifestyle changes and exercise for over 7 minutes GI prophylaxis: Protonix 40 mg p.o. daily DVT prophylaxis: Lovenox 40 mg subcutaneous daily Diet: Cardiac diet Goals of care discussed with the patient for more than 27 minutes: Full code status Case discussed with Dr. Felton, patient and nurse. Plan discussed with: Patient Date of Service: Jan 07, 2025 Billing Provider: GIRISH FELTON MD Common Visit Codes: [id number] INP/OBS CARE (HIGH) NORMA MURGUIA RESIDENT Jan 07, 2025 16:33
[2025-01-07 16:41] VITALS: BP 108/85; PULSE 98; RESP 17; TEMP 98; O2SAT 99
[2025-01-07] MEDS: FUROSEMIDE 100 MG/10ML VIAL IV SCH (17:29)
[2025-01-07] MEDS: DOXYCYCLINE 100MG/100ML 100 ML IV SCH (17:41)
[2025-01-07] MEDS ORDERED: FUROSEMIDE 40 MG/4 ML VIAL IV SCH (18:00)
[2025-01-07] MEDS ORDERED: CARV3.1240 PO (18:12)
[2025-01-07] MEDS ORDERED: EMPA1TAB3 PO (18:12)
[2025-01-07] MEDS ORDERED: FURO80TA3 PO (18:12)
[2025-01-07] MEDS ORDERED: FLUT1INH27 PO (18:12)
[2025-01-07] MEDS ORDERED: FURO40TA4 PO (18:12)
[2025-01-07] MEDS ORDERED: SACU1TAB PO (18:12)
[2025-01-07] MEDS ORDERED: ALLO100T PO (18:12)
[2025-01-07] MEDS ORDERED: ASPI-325 PO (18:12)
[2025-01-07 18:14] VITALS: PULSE 95; RESP 20; O2SAT 97
[2025-01-07] MEDS: IPRATROPIUM BROM 0.5 MG/2.5ML INH SOL NEB PRN (18:17)
[2025-01-07] MEDS: ALBUTEROL SULF 2.5 MG/0.5ML(0.5%) NEB SOLN NEB PRN (18:17)
[2025-01-07 18:27] VITALS: PULSE 94; RESP 20; O2SAT 100
--- NOTE | 2025-01-07 19:06 | ECG ---
[facility] Test Date: 2025-01-07 Test Time: 13:33:36 Pat Name: MAURO WOLF Department: [facility] ED Patient ID: [facility]-[id number] Room: 0286T Gender: M Lan Support Specialist: fermin : 1995 Requested By: JUAN ALBERTO PATRICK Order Number: [id number] Reading MD: Favio Lujan Measurements Intervals [place] Rate: 93 P: 62 CA: 222 QRS: 70 QRSD: 118 T: 43 QT: 394 QTc: 491 Interpretive Statements Sinus rhythm Ventricular premature complex Prolonged CA interval Probable left atrial enlargement Nonspecific intraventricular conduction delay Low voltage with right axis deviation Electronically Signed On 01-10-2025 22:06:22 PDT by Favio Lujan Please click the below link to view image of tracing.
[2025-01-07 19:28] LABS: Anion Gap 14 (5-15)
[2025-01-07 19:40] LABS: BUN/Creatinine Ratio 16.3 (10.0-20.0); Blood Urea Nitrogen 20 mg/dL (9-23); Calcium 8.9 mg/dL (8.7-10.4); Carbon Dioxide 20 mmol/L (20-31); Chloride 104 mmol/L (98-107); Glucose 78 mg/dL (74-106); Magnesium 1.9 mg/dL (1.6-2.6); Potassium 3.9 mmol/L (3.5-5.1); Sodium 138 mmol/L (136-145)
[2025-01-07 20:00] VITALS: BP 108/85; PULSE 94; RESP 20; TEMP 98; O2SAT 97
[2025-01-07 20:53] VITALS: BP 103/78; PULSE 92; RESP 23; TEMP 97; O2SAT 98
--- NOTE | 2025-01-07 21:11 | ECG ---
[facility] Test Date: 2025-01-07 Test Time: 11:35:40 Pat Name: MAURO WOLF Department: Room: 0286T Gender: M Rock Picker: LEVY : 1995 Requested By: JUAN ALBERTO PATRICK Order Number: [id number] Reading MD: Favio Lujan Measurements Intervals [place] Rate: 98 P: 60 MN: 221 QRS: 69 QRSD: 116 T: 48 QT: 376 QTc: 481 Interpretive Statements Sinus rhythm Prolonged MN interval Left atrial enlargement Nonspecific intraventricular conduction delay Low voltage with right axis deviation Electronically Signed On 01-10-2025 22:05:49 PDT by Favio Lujan Please click the below link to view image of tracing.
[2025-01-07 21:33] LABS: COVID19 ANTIGEN SOFIA FIA NEGATIVE (NEGATIVE)
[2025-01-07] MEDS ORDERED: CARVEDILOL 3.125 MG TAB PO SCH (22:00)
[2025-01-07 22:45] VITALS: BP 100/59; PULSE 50; RESP 17; TEMP 98.6; O2SAT 98
[2025-01-07] MEDS: COLCHICINE 0.6 MG CAP PO SCH (22:45)
[2025-01-07] MEDS: SACUBITRIL-VALSARTAN 24mg/26mg TAB PO SCH (22:45)
[2025-01-07 22:48] LABS: Urine Protein, UAD Negative (Negative)
[2025-01-07 22:54] LABS: Amphetamine Screen, Urine Neg (NEGATIVE); Barbiturate Scree,Urine Neg (NEGATIVE); Benzodiazephine Screen, Urine Neg (NEGATIVE); Cocaine Screen, Urine Neg (NEGATIVE); Opiate Scree,Urine Neg (NEGATIVE); Phencyclidine Screen, Urine Neg (NEGATIVE)
[2025-01-07 22:55] LABS: Cannabinoid Screen, Urine Neg (NEGATIVE)
[2025-01-08] VITALS (13 sets, daily range): BP systolic 94–117; BP diastolic 56–75; PULSE 50–98; RESP 16–22; TEMP 97.5–98.9; O2SAT 92–100
[2025-01-08] MEDS: PANTOPRAZOLE 40 MG TAB PO SCH (05:17)
[2025-01-08] MEDS: ALLOPURINOL 100 MG TAB PO SCH (09:00)
[2025-01-08] MEDS: POTASSIUM CHL 10 Meq TABLET PO SCH (09:00)
[2025-01-08] MEDS: EMPAGLIFLOZIN 10 MG TAB PO SCH (09:02)
[2025-01-08] MEDS: ENOXAPARIN SOD 40 MG/0.4 ML SYRINGE SC SCH (09:03)
[2025-01-08 10:01] LABS: Alanine Aminotransferase 38 U/L (7-40); Albumin 3.6 g/dL (3.2-4.8); Alkaline Phosphatase 84 U/L (46-116); Anion Gap 11 (5-15); BUN/Creatinine Ratio 15.4 (10.0-20.0); Bilirubin, Total 3.6 mg/dL (0.2-1.0); Blood Urea Nitrogen 19 mg/dL (9-23); Calcium 8.9 mg/dL (8.7-10.4); Carbon Dioxide 25 mmol/L (20-31); Chloride 102 mmol/L (98-107); Glucose 160 mg/dL (74-106); Potassium 3.4 mmol/L (3.5-5.1); Sodium 138 mmol/L (136-145); Total Protein 6.6 g/dL (5.7-8.2)
[2025-01-08 10:03] LABS: Hematocrit 51.1 % (41.0-53.0); Hemoglobin 17.2 g/dL (13.5-17.5); Mean Corpuscular Hemoglobin 32.2 pg (28.0-32.0); Mean Corpuscular Volume 95.6 fL (80.0-100.0); Nucleated Red Blood Cells % 0.5 %
[2025-01-08] MEDS: POTASSIUM EFFERVESENT TAB 25 MEQ PO ONE (12:00)
--- NOTE | 2025-01-08 14:45 | DVHPNRES ---
Progress Note Date Seen: Jan 08, 2025 Resident Creating Document: NORMA MURGUIA RESIDENT Has the PT tested + for MRSA If YES, has PT been informed?: No Medical Necessity Reason Pt with a Central, PICC or Fol: No Subjective Review of Systems 29-year-old male with CHF (EF 15% on 04/03), AICD 2020, recurrent admissions (13 since 2020), prior alcohol and drug use (abstinent for about 1 year), on home O2- 2 L nasal cannula, presents with intermittent chest pain which is pressure- like, nonradiating, worse with hard cough and at rest as well and progressive shortness of breath with orthopnea (multiple pillows, poor sleep) and bilateral leg edema. Patient reports persistent cough with white sputum, no fever or hemoptysis. He states daily adherence to GDMT (carvedilol, Entresto, furosemide 80 mg b.i.d., empagliflozin, aspirin, KCl ER, colchicine 0.6 mg, allopurinol). Last AICD shock 1 year ago, last interrogation around 1 year ago. Most recent hospitalization October 2024. Patient's heart rate is 102, BP 130/72, SpO2 99% RA, afebrile. T. bili 2.4, AST 60, ALT 35, BNP 206 0, troponins 45> 44. EKG shows sinus tachycardia, prolonged AL, LAE, prior lateral infarct pattern. Past medical history: Heart failure from prior drug use Past surgical history: AICD placed 2020 Family history: Reviewed and noncontributory the management of this case Social history: Patient denies smoking, drug abuse but drinks alcohol Allergies: None Home medications: Carvedilol, Entresto, furosemide, potassium supplement, colchicine, allopurinol, Jardiance, aspirin ROS 01/08/2025: Patient was seen and examined by me at the bedside. Patient reports feeling much better. Bilateral leg edema has decreased substantially. furosemide 80 mg IV we will be continued today. Possible DC tomorrow Objective vital signs Vital Sign Date Time Temp Pulse Resp B/P (MAP) Pulse Ox O2 Delivery O2 Flow Rate FiO2 01/08/25 14:00 98.9 66 22 107/71 (83) 92 98.9 01/08/25 10:00 Nasal Cannula* 2 28 Total Intake and Output 01/07/25 01/07/25 01/08/25 15:00 23:00 07:00 Intake Total 100 ml 400 ml Output Total 300 ml Balance 100 ml 100 ml medications Current Medications Medications Dose Ordered Sig/Evens Route Start Time Stop Time Status Last Admin Dose Admin Ondansetron HCl 4 mg Q4HP PRN IV 01/07/25 14:30 Enoxaparin Sodium 40 mg DAILY SC 01/08/25 10:00 01/08/25 09:03 40 MG Acetaminophen 650 mg Q6HP PRN PO 01/07/25 14:30 Nitroglycerin 0.4 mg Q5MINP PRN SL 01/07/25 14:30 Morphine Sulfate 2 mg Q30M PRN IV 01/07/25 14:45 Empaglifozin 25 mg DAILY PO 01/08/25 10:00 01/08/25 09:02 25 MG Colchicine 0.6 mg BID PO 01/07/25 22:00 01/08/25 08:59 0.6 MG Allopurinol 100 mg DAILY PO 01/08/25 10:00 01/08/25 09:00 100 MG Potassium Chloride 10 meq DAILY PO 01/08/25 10:00 01/08/25 09:00 10 MEQ Sacubitril/ Valsartan 2 tab BID PO 01/07/25 22:00 01/08/25 08:59 2 TAB Pantoprazole Sodium 40 mg DAILY@0600 PO 01/08/25 06:00 01/08/25 05:17 40 MG Furosemide 80 mg DAILY IV 01/07/25 18:00 01/08/25 09:03 80 MG Ceftriaxone Sodium 50 ml @ 100 mls/hr DAILY@09 IV 01/08/25 09:00 01/08/25 09:04 100 MLS/HR Doxycycline Hyclate 100 ml @ 50 mls/hr Q12HR@0600,1800 IV 01/07/25 18:00 01/08/25 05:22 50 MLS/HR Albuterol 1.25 mg Q4HPRN PRN NEB 01/07/25 17:30 01/08/25 08:05 1.25 MG Ipratropium [place] 0.5 mg Q4HPRN PRN NEB 01/07/25 17:30 01/08/25 08:06 0.5 MG Carvedilol 3.125 mg Q12HR PO 01/08/25 22:00 Spironolactone 25 mg DAILY PO 01/09/25 10:00 Examination Pt is lying on bed General Appearance: Alert, Oriented X3, Cooperative, Not in acute distress HEENT: Atraumatic, Mucous membranes moist/pink Respiratory: Clear to auscultation, Normal air movement, No added sounds Cardiovascular: Regular rate, Normal S1, Normal S2, presence of bilateral crackles Abdominal: Active bowel sounds, Soft, no distention, no tenderness Extremities: No edema, Normal pulses, mild pitting edema of bilateral legs Skin: No Significant rash, except past surgical scars Neuro: Normal speech, sensorimotor deficits none Psych/Mental Status: Mental status NL, Mood NL Nurse was there as workforce development assistant during examination laboratory and microbiology Laboratory Tests 01/08/25 09:00 Test 01/08/25 09:00 Range/Units Serum Glucose 160 H 74-106 mg/dL Labs and/or images reviewed: Labs reviewed by me, Image(s) reviewed by me Problem List/Assessment/Plan Problem List/Assessment/Plan #Acute exacerbation of heart failure, HFrEF 15% -EKG -telemetry -echo, pending -furosemide 80 mg IV daily -strict input output monitoring -fluid restriction -Obtain daily weight -Entresto 2 tabs b.i.d. scheduled -Carvedilol 3.125 mg per orally Q 12 scheduled -Jardiance 25 mg p.o. daily scheduled -Potassium ER tablet 10 mEq per oral daily scheduled -aspirin 81 mg per orally -morphine sulfate injection 2 mg IV Q 30 PRN -nitroglycerin sublingual 0.4 mg Q 5 minute PRN -acetaminophen 650 mg p.o. q.6 PRN -Zofran 4 mg IV q.4 PRN -CXR: Increased interstital prominence. This may represent pulmonary vascular congestion and/or viral pneumonia. Clinical correlation advised. -flu, COVID test, Negative #gout, no flare -allopurinol 100 mg p.o. daily scheduled -Colchicine 0.6 mg p.o. b.i.d. scheduled #morbid obesity -Patient counseled regarding dietary modification, lifestyle changes and exercise for over 7 minutes GI prophylaxis: Protonix 40 mg p.o. daily DVT prophylaxis: Lovenox 40 mg subcutaneous daily Diet: Cardiac diet Goals of care discussed with the patient for more than 27 minutes: Full code status Case discussed with Dr. Felton, patient and nurse. Plan discussed with: Patient My Orders My Orders Orders - NORMA MURGUIA Procedure Category Date Status Time Pantoprazole Tablet PHA 01/08/25 In Process (Protonix Tablet) 06:00 Date of Service: Jan 08, 2025 Billing Provider: GIRISH FELTON MD Common Visit Codes: [id number] INP/OBS CARE(HIGH) NORMA MURGUIA Jan 08, 2025 14:45 GIRISH FELTON MD Jan 10, 2025 00:15
[2025-01-08] MEDS: CARVEDILOL 3.125 MG TAB PO SCH (21:35)
[2025-01-09] VITALS (17 sets, daily range): BP systolic 101–156; BP diastolic 67–100; PULSE 59–101; RESP 16–24; TEMP 97.7–98.1; O2SAT 92–100
[2025-01-09 07:45] LABS: Chloride 103 mmol/L (98-107); Hematocrit 49.1 % (41.0-53.0); Hemoglobin 16.8 g/dL (13.5-17.5); Mean Corpuscular Hemoglobin 32.5 pg (28.0-32.0); Mean Corpuscular Volume 95.1 fL (80.0-100.0); Nucleated Red Blood Cells % 0.2 %; Potassium 4.0 mmol/L (3.5-5.1); Sodium 141 mmol/L (136-145)
[2025-01-09 07:46] LABS: Anion Gap 11 (5-15); Carbon Dioxide 27 mmol/L (20-31)
[2025-01-09 07:47] LABS: Calcium 9.0 mg/dL (8.7-10.4)
[2025-01-09 07:51] LABS: BUN/Creatinine Ratio 16.5 (10.0-20.0); Blood Urea Nitrogen 21 mg/dL (9-23); Glucose 92 mg/dL (74-106)
[2025-01-09] MEDS: SPIRONOLACTONE 25 MG TAB PO SCH (08:33)
--- NOTE | 2025-01-09 09:13 | DVHSR ---
APPROVED REPORT EXAM: Two-dimensional and M-mode echocardiogram with Doppler and color Doppler. Blood Pressure: 113/61 mmHg INDICATION Evaluate heart function RISK FACTORS Height: 6', Weight: 351 DIMENSIONS LVDd8.6 (3.8-5.7cm)LA (2D)4.8 (1.9-4.0cm)Aortic Root3.2 (2.0-3.7cm) LVDs8.5 (2.5-4.0cm)LA (MM) (1.9-4.0cm)Aortic Cusp Exc (1.5-2.0cm) EF (%) 4.0 (55-70%)Rt. Atrium (1.9-4.0cm)Asc. Aorta cm IVSd0.8 (0.7-1.1cm)RV (D) (1.8-2.4cm) PWd0.6 (0.7-1.1cm) Mitral Valve MitralMitral Stenosis E/A ratio0.02D MVAcm2 Aortic Valve Aortic ValveAortic Stenosis LVOT Diameter2.3 (1.8-2.4cm)Doppler AVAcm2 Pulmonic Valve V20.59m/s Tricuspid Valve TR Velocity3.01m/s [id number] Other Information Quality : Technically LimitedRhythm : Technically limited study due to body habitus. Conclusion SIGNIFICANTLY DILATED ALL CARDIAC CHAMBERS SEVERE GLOBAL HYPOKINESIS LV EF IS ONLY 5% MODERATE DEGREE PULMONARY HYPERTENSION NO EFFUSION NORMAL VALVES
--- NOTE | 2025-01-09 13:25 | ECG ---
[facility] Test Date: 2025-01-07 Test Time: 16:38:16 Pat Name: MAUOR WOLF Department: Room: [facility]6T B Gender: M Transformer Inspector: MAR : 1995 Requested By: NORMA MURGUIA Order Number: [id number] Reading MD: Favio Lujan Measurements Intervals [place] Rate: 92 P: 60 [place]: 226 QRS: 65 QRSD: 112 T: 21 QT: 392 QTc: 484 Interpretive Statements Sinus rhythm with 1st degree AV block with occasional premature ventricular complexes Possible Left atrial enlargement Incomplete left bundle branch block Prolonged QT Electronically Signed On 01-10-2025 21:08:00 PDT by Favio Lujan Please click the below link to view image of tracing.
--- NOTE | 2025-01-09 14:22 | DVHPNRES ---
Progress Note Date Seen: Jan 09, 2025 Resident Creating Document: NORMA MURGUIA RESIDENT Has the PT tested + for MRSA If YES, has PT been informed?: No Medical Necessity Reason Pt with a Central, PICC or Fol: No Subjective Review of Systems 29-year-old male with CHF (EF 15% on 04/03), AICD 2020, recurrent admissions (13 since 2020), prior alcohol and drug use (abstinent for about 1 year), on home O2- 2 L nasal cannula, presents with intermittent chest pain which is pressure- like, nonradiating, worse with hard cough and at rest as well and progressive shortness of breath with orthopnea (multiple pillows, poor sleep) and bilateral leg edema. Patient reports persistent cough with white sputum, no fever or hemoptysis. He states daily adherence to GDMT (carvedilol, Entresto, furosemide 80 mg b.i.d., empagliflozin, aspirin, KCl ER, colchicine 0.6 mg, allopurinol). Last AICD shock 1 year ago, last interrogation around 1 year ago. Most recent hospitalization October 2024. Patient's heart rate is 102, BP 130/72, SpO2 99% RA, afebrile. T. bili 2.4, AST 60, ALT 35, BNP 206 0, troponins 45> 44. EKG shows sinus tachycardia, prolonged ME, LAE, prior lateral infarct pattern. Past medical history: Heart failure from prior drug use Past surgical history: AICD placed 2020 Family history: Reviewed and noncontributory the management of this case Social history: Patient denies smoking, drug abuse but drinks alcohol Allergies: None Home medications: Carvedilol, Entresto, furosemide, potassium supplement, colchicine, allopurinol, Jardiance, aspirin ROS 01/08/2025: Patient was seen and examined by me at the bedside. Patient reports feeling much better. Bilateral leg edema has decreased substantially. furosemide 80 mg IV we will be continued today. Possible DC tomorrow 01/09/2025: patient reports feeling better today. No new active complaints. Echocardiography report showed ejection fraction of 5%. We are changing his IV furosemide into oral dose and Breo we will continue diuresing him. Objective vital signs Vital Sign Date Time Temp Pulse Resp B/P (MAP) Pulse Ox O2 Delivery O2 Flow Rate FiO2 01/09/25 09:59 95 Room Air 0.0 01/09/25 09:59 21 01/09/25 08:54 87 20 01/09/25 08:32 115/81 01/09/25 08:30 97.9 97.9 Total Intake and Output 01/08/25 01/08/25 01/09/25 15:00 23:00 07:00 Intake Total 50 ml 900 ml 400 ml Output Total 600 ml 425 ml Balance 50 ml 300 ml -25 ml medications Current Medications Medications Dose Ordered Sig/Evens Route Start Time Stop Time Status Last Admin Dose Admin Ondansetron HCl 4 mg Q4HP PRN IV 01/07/25 14:30 Enoxaparin Sodium 40 mg DAILY SC 01/08/25 10:00 01/09/25 08:33 40 MG Acetaminophen 650 mg Q6HP PRN PO 01/07/25 14:30 Nitroglycerin 0.4 mg Q5MINP PRN SL 01/07/25 14:30 Morphine Sulfate 2 mg Q30M PRN IV 01/07/25 14:45 Empaglifozin 25 mg DAILY PO 01/08/25 10:00 01/09/25 08:32 25 MG Colchicine 0.6 mg BID PO 01/07/25 22:00 01/09/25 08:33 0.6 MG Allopurinol 100 mg DAILY PO 01/08/25 10:00 01/09/25 08:32 100 MG Potassium Chloride 10 meq DAILY PO 01/08/25 10:00 01/09/25 08:33 10 MEQ Sacubitril/ Valsartan 2 tab BID PO 01/07/25 22:00 01/09/25 08:32 2 TAB Pantoprazole Sodium 40 mg DAILY@0600 PO 01/08/25 06:00 01/09/25 05:28 40 MG Ceftriaxone Sodium 50 ml @ 100 mls/hr DAILY@09 IV 01/08/25 09:00 01/09/25 08:31 100 MLS/HR Doxycycline Hyclate 100 ml @ 50 mls/hr Q12HR@0600,1800 IV 01/07/25 18:00 01/09/25 05:28 50 MLS/HR Albuterol 1.25 mg Q4HPRN PRN NEB 01/07/25 17:30 01/09/25 08:45 1.25 MG Ipratropium Hartly 0.5 mg Q4HPRN PRN NEB 01/07/25 17:30 01/09/25 08:46 0.5 MG Carvedilol 3.125 mg Q12HR PO 01/08/25 22:00 01/09/25 08:32 3.125 MG Spironolactone 25 mg DAILY PO 01/09/25 10:00 01/09/25 08:33 25 MG Furosemide 80 mg BIDD PO 01/09/25 18:00 Examination Pt is lying on bed General Appearance: Alert, Oriented X3, Cooperative, Not in acute distress HEENT: Atraumatic, Mucous membranes moist/pink Respiratory: Clear to auscultation, Normal air movement, No added sounds Cardiovascular: Regular rate, Normal S1, Normal S2, presence of bilateral crackles Abdominal: Active bowel sounds, Soft, no distention, no tenderness Extremities: No edema, Normal pulses Skin: No Significant rash, except past surgical scars Neuro: Normal speech, sensorimotor deficits none Psych/Mental Status: Mental status NL, Mood NL Nurse was there as utilization supervisor during examination laboratory and microbiology Laboratory Tests 01/09/25 07:00 Test 01/09/25 07:00 Range/Units Serum Glucose 92 74-106 mg/dL Labs and/or images reviewed: Labs reviewed by me, Image(s) reviewed by me Problem List/Assessment/Plan Problem List/Assessment/Plan #Acute exacerbation of heart failure, HFrEF 15% -EKG -telemetry -echo, LV EF IS ONLY 5% -furosemide 80 mg IV daily; Changed to oral dose on 01/09/2025 -strict input output monitoring -fluid restriction -Obtain daily weight -Entresto 2 tabs b.i.d. scheduled -Carvedilol 3.125 mg per orally Q 12 scheduled -Jardiance 25 mg p.o. daily scheduled -Potassium ER tablet 10 mEq per oral daily scheduled -aspirin 81 mg per orally -morphine sulfate injection 2 mg IV Q 30 PRN -nitroglycerin sublingual 0.4 mg Q 5 minute PRN -acetaminophen 650 mg p.o. q.6 PRN -Zofran 4 mg IV q.4 PRN -CXR: Increased interstital prominence. This may represent pulmonary vascular congestion and/or viral pneumonia. Clinical correlation advised. -flu, COVID test, Negative #gout, no flare -allopurinol 100 mg p.o. daily scheduled -Colchicine 0.6 mg p.o. b.i.d. scheduled #morbid obesity -Patient counseled regarding dietary modification, lifestyle changes and exercise for over 7 minutes GI prophylaxis: Protonix 40 mg p.o. daily DVT prophylaxis: Lovenox 40 mg subcutaneous daily Diet: Cardiac diet Goals of care discussed with the patient for more than 27 minutes: Full code status Case discussed with Dr. Felton, patient and nurse. Plan discussed with: Patient, Other (rn) My Orders My Orders Orders - NORMA MURGUIA Procedure Category Date Status Time Bipap/Cpap For Sleep RT 01/08/25 Logged Apnea 21:00 Date of Service: Jan 09, 2025 Billing Provider: GIRISH FELTON MD Common Visit Codes: 23069-[id number] INP/OBS CARE(HIGH) NORMA MURGUIA RESIDENT Jan 09, 2025 14:22 GIRISH FELTON MD Jan 09, 2025 22:15
--- NOTE | 2025-01-09 17:19 | MEDREC ---
[facility] ASP Intervention Section I [facility] ASP Intervention: Review courses of therapy (PLEASE CONSIDER D/C ANTIBIOTIC IN ABSENCE OF BACTERIAL INFECTION) SHONNA RUIZ PHARMACIST Jan 09, 2025 17:19
[2025-01-09] MEDS: FUROSEMIDE 40 MG TAB PO SCH (18:07)
[2025-01-10] VITALS (9 sets, daily range): BP systolic 90–104; BP diastolic 47–71; PULSE 46–107; RESP 18–20; TEMP 98.2–98.9; O2SAT 95–99
[2025-01-10 08:01] LABS: Anion Gap 14 (5-15); Carbon Dioxide 28 mmol/L (20-31); Potassium 4.0 mmol/L (3.5-5.1); Sodium 138 mmol/L (136-145)
[2025-01-10 08:02] LABS: Calcium 9.8 mg/dL (8.7-10.4)
[2025-01-10 08:05] LABS: Chloride 96 mmol/L (98-107); Hemoglobin 18.6 g/dL (13.5-17.5); Mean Corpuscular Volume 96.1 fL (80.0-100.0); Nucleated Red Blood Cells % 0.2 %
[2025-01-10 08:07] LABS: BUN/Creatinine Ratio 11.8 (10.0-20.0); Blood Urea Nitrogen 17 mg/dL (9-23); Glucose 94 mg/dL (74-106)
[2025-01-10 08:08] LABS: Hematocrit 54.7 % (41.0-53.0); Mean Corpuscular Hemoglobin 32.7 pg (28.0-32.0)
--- NOTE | 2025-01-10 12:28 | DVHDSRES ---
Discharge Summary Date of Admission Resident Creating Document: NORMA MURGUIA RESIDENT Jan 07, 2025 at 14:22 Date of Discharge: Jan 10, 2025 Admitting Diagnosis acute on chronic systolic heart failure Labs/Diagnostic Data: Laboratory Results Test 01/10/25 07:13 01/08/25 09:00 01/07/25 22:05 01/07/25 21:34 White Blood Count 7.3 10^3/uL (4.4-10.8) Red Blood Count 5.69 10^6/uL (4.5-5.90) Hemoglobin 18.6 g/dL (13.5-17.5) Hematocrit 54.7 % (41.0-53.0) Mean Corpuscular Volume 96.1 fL (80.0-100.0) Mean Corpuscular Hemoglobin 32.7 pg (28.0-32.0) Mean Corpuscular Hemoglobin Concent 34.0 g/dL (32.0-36.0) Red Cell Distribution Width 15.6 % (11.8-14.3) Platelet Count 180 10^3/uL (140-450) Mean Platelet Volume 7.7 fL (6.9-10.8) Neutrophils (%) (Auto) 53.2 % (37.0-80.0) Lymphocytes (%) (Auto) 25.3 % (10.0-50.0) Monocytes (%) (Auto) 12.8 % (0.0-12.0) Eosinophils (%) (Auto) 7.7 % (0.0-7.0) Basophils (%) (Auto) 1.0 % (0.0-2.0) Neutrophils # (Auto) 3.9 10 ^3/uL (1.6-8.6) Lymphocytes # (Auto) 1.9 10 ^3/uL (0.4-5.4) Monocytes # (Auto) 0.9 10 ^3/uL (0-1.3) Eosinophils # (Auto) 0.6 10 ^3/uL (0-0.8) Basophils # (Auto) 0.1 10 ^3/uL (0-0.2) Nucleated Red Blood Cells 0.2 % Sodium Level 138 mmol/L (136-145) Potassium Level 4.0 mmol/L (3.5-5.1) Chloride Level 96 mmol/L (98-107) Carbon Dioxide Level 28 mmol/L (20-31) Anion Gap 14 (5-15) Blood Urea Nitrogen 17 mg/dL (9-23) Creatinine 1.44 mg/dL (0.700-1.30) Glomerular Filtration Rate Calc 67 mL/min (>90) BUN/Creatinine Ratio 11.8 (10.0-20.0) Serum Glucose 94 mg/dL (74-106) Calcium Level 9.8 mg/dL (8.7-10.4) Total Bilirubin 3.6 mg/dL (0.2-1.0) Aspartate Amino Transferase (AST) 55 U/L (13-40) Alanine Aminotransferase (ALT) 38 U/L (7-40) Alkaline Phosphatase 84 U/L (46-116) Total Protein 6.6 g/dL (5.7-8.2) Albumin 3.6 g/dL (3.2-4.8) Urine Color Light-yellow (Yellow) Urine Clarity Clear (Clear) Urine pH 6.5 (5.0-9.0) Urine Specific [place] 1.006 (1.001-1.035) Urine Protein Negative (Negative) Urine Ketones Negative (Negative) Urine Blood Negative /uL (Negative) Urine Nitrite Negative (Negative) Urine Bilirubin Negative (Negative) Urine Urobilinogen Normal mg/dL (Negative) Urine Leukocyte Esterase Negative /uL (Negative) Urine RBC None seen /hpf (0 - 3) Urine Microscopic WBC < 1 /HPF (0-3) Urine Squamous Epithelial Cells None seen /hpf (<5) Urine Bacteria None seen /hpf (None Seen) Urine Glucose Normal mg/dL (Normal) Urine Opiates Screen Neg (NEGATIVE) Urine Fentanyl Screen Neg (NEGATIVE) Urine Barbiturates Screen Neg (NEGATIVE) Urine Phencyclidine Screen Neg (NEGATIVE) Urine Amphetamines Screen Neg (NEGATIVE) Urine Benzodiazepines Screen Neg (NEGATIVE) Urine Cocaine Screen Neg (NEGATIVE) Urine Cannabinoids Screen Neg (NEGATIVE) Troponin I High Sensitivity 38 ng/L (</=54) Test 01/07/25 20:00 01/07/25 18:30 01/07/25 10:41 Influenza Type A Antigen Negative (Negative) Influenza Type B Antigen Negative (Negative) SARS-CoV-2 Antigen (Rapid) Negative (NEGATIVE) Magnesium Level 1.9 mg/dL (1.6-2.6) Hemoglobin A1c 6.0 % A1C (<5.7) B-Type Natriuretic Peptide 2060.58 pg/mL (0-100) Other Laboratory Tests 01/10/25 07:13 Brief Hx & Hospital Course: 29-year-old male with CHF (EF 15% on 04/03), AICD 2020, recurrent admissions (13 since 2020), prior alcohol and drug use (abstinent for about 1 year), on home O2- 2 L nasal cannula, presents with intermittent chest pain which is pressure- like, nonradiating, worse with hard cough and at rest as well and progressive shortness of breath with orthopnea (multiple pillows, poor sleep) and bilateral leg edema. Patient reports persistent cough with white sputum, no fever or hemoptysis. He states daily adherence to GDMT (carvedilol, Entresto, furosemide 80 mg b.i.d., empagliflozin, aspirin, KCl ER, colchicine 0.6 mg, allopurinol). Last AICD shock 1 year ago, last interrogation around 1 year ago. Most recent hospitalization October 2024. Patient's heart rate is 102, BP 130/72, SpO2 99% RA, afebrile. T. bili 2.4, AST 60, ALT 35, BNP 206 0, troponins 45> 44. EKG shows sinus tachycardia, prolonged VT, LAE, prior lateral infarct pattern. Past medical history: Heart failure from prior drug use Past surgical history: AICD placed 2020 Family history: Reviewed and noncontributory the management of this case Social history: Patient denies smoking, drug abuse but drinks alcohol Allergies: None Home medications: Carvedilol, Entresto, furosemide, potassium supplement, colchicine, allopurinol, Jardiance, aspirin Brief history of hospitalization: Patient came in with chest pain, swelling of bilateral legs and shortness of breaths. He had acute exacerbation of CHF. Previous echo shows ejection fraction to be 15% on 04/03. We gave the patient oxygen 2 L to maintain his saturation and improve his breathing. An EKG was done which came back normal and we kept the patient on telemetry to monitor his heart. Furosemide 80 mg IV was given to decrease his bilateral pitting edema. On auscultation his lungs also had crackles. Once furosemide was administered strict input-output monitoring was done, patient was on fluid restriction and we obtain daily weight measurement. We continued the patient on Entresto, carvedilol and Jardiance as well as potassium which the patient has been taking at home. Aspirin 81 mg was also given orally. For pain control we gave him nitroglycerin PRN, morphine PRN acetaminophen PRN and Zofran 4 mg IV PRN for nausea. Chest x-ray was done which showed increased interstitial prominence. This may represent pulmonary vascular congestion and or viral pneumonia. Clinical correlation was advised. We did a flu and COVID test which came back negative. For patient's gout with no flare during hospitalization we gave him his home medication allopurinol and colchicine as scheduled. Patient is morbidly obese with a BMI of 47.6 kg/m2 and patient was counseled regarding dietary modification, lifestyle changes and exercise for over 7 minutes. During hospitalization we also gave him Protonix for GI prophylaxis and Lovenox 40 mg subcutaneous daily. We put him in a cardiac diet throughout. A repeat echo results showed ejection fraction of 5%. Patient's symptoms have improved and bilateral pitting edema has significantly improved as well. Patient was also given BiPAP during hospitalization at night and he reported feeling much better, sleeping well. Patient is now stable for discharge and can go home. He has been counselled to meet his PCP, come to the continuity clinic, follow up with cardiology. Patient has communicated understanding and has agreed to the discharge plan. pt will be going home with spironoiloactone 50mg daily and furosemide 80mg daily. General Appearance: Alert, Oriented X3, Cooperative, Not in acute distress HEENT: Atraumatic, Mucous membranes moist/pink Respiratory: Clear to auscultation, Normal air movement, No added sounds Cardiovascular: Regular rate, Normal S1, Normal S2, presence of bilateral crackles Abdominal: Active bowel sounds, Soft, no distention, no tenderness Extremities: No edema, Normal pulses, no swelling Skin: No Significant rash, except past surgical scars Neuro: Normal speech, sensorimotor deficits none Psych/Mental Status: Mental status NL, Mood NL Nurse was there as station installation supervisor during examination Operations or Procedures CHEST RADIOGRAPH Indication: cp sob IMPRESSION: Increased interstital prominence. This may represent pulmonary vascular congestion and/or viral pneumonia. Clinical correlation advised. PROCEDURE(s): [facility] - ECHO 2D MODE CARDIAC DOP REASON: Evaluate for heart function ORDER NUMBER(s): [id number], ACCESSION NUMBER(s): [id number] APPROVED REPORT EXAM: Two-dimensional and M-mode echocardiogram with Doppler and color Doppler. Blood Pressure: 113/61 mmHg INDICATION Evaluate heart function RISK FACTORS Height: 6', Weight: 351 DIMENSIONS LVDd 8.6 (3.8-5.7cm) LA (2D) 4.8 (1.9-4.0cm) Aortic Root 3.2 (2.0- 3.7cm) LVDs 8.5 (2.5-4.0cm) LA (MM) (1.9-4.0cm) Aortic Cusp Exc (1.5- 2.0cm) EF (%) 4.0 (55-70%) Rt. Atrium (1.9-4.0cm) Asc. Aorta cm IVSd 0.8 (0.7-1.1cm) RV (D) (1.8-2.4cm) PWd 0.6 (0.7-1.1cm) Mitral Valve Mitral Mitral Stenosis E/A ratio 0.0 2D MVA cm2 Aortic Valve Aortic Valve Aortic Stenosis LVOT Diameter 2.3 (1.8-2.4cm) Doppler JANETT cm2 Pulmonic Valve V2 0.59m/s Tricuspid Valve TR Velocity 3.01m/s RVSP 44mmHg Other Information Quality : Technically Limited Rhythm : Technically limited study due to body habitus. Conclusion SIGNIFICANTLY DILATED ALL CARDIAC CHAMBERS SEVERE GLOBAL HYPOKINESIS LV EF IS ONLY 5% MODERATE DEGREE PULMONARY HYPERTENSION NO EFFUSION NORMAL VALVES SIGNED BY: BORIS LATHAM MD SIGNED DATE/TIME: 01/09/25912 Condition at Discharge: Stable Final Diagnosis/Problems List #Acute exacerbation of heart failure, HFrEF 5% #gout, no flare #morbid obesity, BMI 47.6 Discharge Disposition: Home Discharge Instruct/Medications Diet: Consistent carbohydrate, Cardiac 2g Na,low cholest Activity: No Restrictions, As Tolerated Follow Up/Referral: f/u at d/c clinic tommorow with dr Mcallister f/u with PCP within 1 week Medications: furosemide 80mg po daily spironolactone 50mg daily for 3 months resume home meds Scheduled Albuterol Sulfate (Albuterol Sulfate Hfa), 1 PUFF INH Q4HR PRN, (Reported) Allopurinol (Allopurinol), 1 TAB PO DAILY, (Reported) Aspirin (Aspirin Low Dose), 1 TAB PO DAILY, (Reported) Carvedilol (Carvedilol), 1 TAB PO BID, (Reported) Colchicine (Colchicine), 1 TAB PO DAILY, (Reported) Empagliflozin (Jardiance), 1 TAB PO DAILY, (Reported) Fluticasone Furoate-Vilanterol (Fluticasone Furoate/Vilan 100-25 Mcg/Act), 1 PUFF PO DAILY, (Reported) Furosemide (Lasix), 1 TAB PO DAILY Potassium Chloride (Potassium Chloride ER), 1 TAB PO BIDWM, (Reported) Sacubitril-Valsartan (Entresto 24-26 mg), 1 TAB PO BID, (Reported) Spironolactone (Spironolactone), 1 TAB PO DAILY Discontinued Medications Furosemide (Furosemide), 1 TAB PO DAILY, (Reported) Discharge Statement: "Patient was advised to return to the ER or call 911 if any headaches, dizziness, shortness of breath, chest pain, abdominal pain, bleeding, fevers, or worsening of medical condition. Patient was counseled about treatment plan, medications, possible side effects, patientverbalized understanding. All questions were answered to the best of my ability. This discharge took greater then 30 minutes in planning, reviewing documentation, counseling the patient, and discussing with other team members." ASSESSMENT ASSESSMENT Assessment acute on chronic heart failure, ejection fraction 5% Date of Service: Jan 10, 2025 Billing Provider: GIRISH FELTON MD Common Visit Codes: 73866-BOD/OBS DISCH DAY >30min NORMA MURGUIA RESIDENT Jan 10, 2025 12:28 GIRISH FELTON MD Jan 11, 2025 19:42
[2025-01-10] MEDS ORDERED: SPIR50TA5 PO (12:29)
[2025-01-10] MEDS ORDERED: FURO1TAB32 PO (12:29)
== END 2025-01-10 14:15 | disposition home or self-care (01) | DRG 194 ==
LOC: ER 10:30 → OVERFLOW 14:22 → TELE-WESTW 22:35
PROVIDERS: ADMIT Student in an Organized Health Care Education/Training Program; ATTEND Student in an Organized Health Care Education/Training Program
PROC: 5A09357 Assistance with Respiratory Ventilation, Less than 24 Consecutive Hours, Continuous Positive Airway Pressure (ICD-10-PCS; principal; 2025-01-08)
PROC: 5A09357 Assistance with Respiratory Ventilation, Less than 24 Consecutive Hours, Continuous Positive Airway Pressure (ICD-10-PCS; 2025-01-09)
DX: I50.23 Acute on chronic systolic (congestive) heart failure (principal); J15.69 Pneumonia due to other Gram-negative bacteria; J15.9 Unspecified bacterial pneumonia; E66.01 Morbid (severe) obesity due to excess calories; M10.9 Gout, unspecified; Z95.810 Presence of automatic (implantable) cardiac defibrillator; Z68.42 Body mass index [BMI] 45.0-49.9, adult; Z79.899 Other long term (current) drug therapy
CPT/HCPCS: 36415; 71045; 80048; 80053; 80307; 81001; 83036; 83735; 83880; 84484; 85025; 87426; 87804; 93005; 93306; 94640; 94660; 96365; 99291; G0378

== ENCOUNTER 2025-01-11 12:35 | Outpatient (CLI) | payer MEDICAID ==
[~2025-01-11 12:35] MED LIST changes: +ALLO100T PO; +ASPI-325 PO; +CARV3.1240 PO; +EMPA1TAB3 PO; +FLUT1INH27 PO; +FURO1TAB32 PO; -NAP500T PO; +SACU1TAB PO; +SPIR50TA5 PO
[2025-01-11 13:34] LABS: Alanine Aminotransferase 39 U/L (7-40); Albumin 4.0 g/dL (3.2-4.8); Alkaline Phosphatase 102 U/L (46-116); Anion Gap 11 (5-15); BUN/Creatinine Ratio 13.1 (10.0-20.0); Blood Urea Nitrogen 17 mg/dL (9-23); Calcium 9.4 mg/dL (8.7-10.4); Carbon Dioxide 25 mmol/L (20-31); Chloride 102 mmol/L (98-107); Glucose 81 mg/dL (74-106); Potassium 4.4 mmol/L (3.5-5.1); Sodium 138 mmol/L (136-145); Total Protein 7.5 g/dL (5.7-8.2)
[2025-01-11 13:35] LABS: Bilirubin, Total 1.8 mg/dL (0.2-1.0)
== END 2025-01-11 17:00 | disposition home or self-care (01) ==
LOC: LAB 12:35
PROVIDERS: ATTEND Student in an Organized Health Care Education/Training Program
DX: I50.23 Acute on chronic systolic (congestive) heart failure (principal)
CPT/HCPCS: 36415; 80053